=== PATIENT | male | born 1985 | race Caucasian/White ===

== ENCOUNTER 2024-07-06 13:59 | Emergency (ER) | payer SELFPAY ==
[2024-07-06 14:03] VITALS: BP 174/96
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
[2024-07-06] MEDS: MOTRIN 400 MG PO (15:09)
== END 2024-07-06 16:34 | disposition home or self-care (01) ==
LOC: EMR 13:59
PROVIDERS: EMERGENCY PHYSICIAN Emergency Medicine; FAMILY PHYSICIAN Family Medicine
DX: S79.912A Unspecified injury of left hip, initial encounter (principal); H93.12 Tinnitus, left ear; V43.52XA Car driver injured in collision with other type car in traffic accident, initial encounter; W22.11XA Striking against or struck by driver side automobile airbag, initial encounter; Y92.410 Unspecified street and highway as the place of occurrence of the external cause; R03.0 Elevated blood-pressure reading, without diagnosis of hypertension; E78.5 Hyperlipidemia, unspecified; F41.9 Anxiety disorder, unspecified
CPT/HCPCS: 99283; 73502